=== PATIENT | female | born 2000 | race Hispanic/Latino ===

== ENCOUNTER 2025-02-17 19:56 | Emergency (ER) | payer OTHER, SELFPAY ==
[2025-02-17 20:01] VITALS: BP 125/61; PULSE 73; RESP 18; TEMP 36.7; O2SAT 99; BMI 37.7
--- NOTE | 2025-02-17 20:04 | DI.RAD.S_ITS ---
PROCEDURE: XR HAND RT MIN 3V INDICATIONS: pain TECHNIQUE: 3 views of the hand(s) acquired. COMPARISON: None. FINDINGS: Bones: No fractures or dislocations. Carpal bones are normally aligned. No suspicious bony lesions. Soft tissues: No suspicious soft tissue calcifications. IMPRESSION: No acute bony abnormality. Dictated by: Benoit Noguera M.D. on 02/17/2025 at 21:49 Approved by: Benoit Noguera M.D. on 02/17/2025 at 21:50
--- NOTE | 2025-02-17 23:04 | ED_ITS ---
HPI - Extremity Injury (Upper) General Chief Complaint: Extremity Injury, Upper Stated Complaint: R hand/wrist injury Time Seen by Provider: 02/17/25 23:01 Source: patient Mode of arrival: Ambulatory History of Present Illness HPI narrative: 24-year-old female complains of right wrist/hand pain, had been lifting boxes earlier today, no blunt trauma. No previous injuries or surgeries to that wrist or hand. No numbness or tingling to the fingers. Sometimes has shooting pains up the ipsilateral forearm. Denies pain to the elbow, upper arm, shoulder. No pain left upper extremity. No fevers or chills. No skin changes or redness. No joint swelling. No fevers or chills. Related Data Allergies Allergy/AdvReac Type Severity Reaction Status Date / Time No Known Drug Allergies Allergy Verified 02/17/25 20:03 Patient History Social History Smoking Status: Current every day smoker Smoking Status: Current every day smoker tobacco type: cigarettes and vaping Exam Narrative Exam Narrative: GENERAL: Well-developed patient, in mild distress. HEAD: Atraumatic. Normocephalic. EYES: Pupils equal round and reactive. Extraocular motions intact. No scleral icterus. No injection or drainage. ENT: No gross craniofacial injuries NECK: Trachea midline. Non tender CARDIOVASCULAR: Regular rate and rhythm without murmurs, gallops, or rubs. RESPIRATORY: Clear to auscultation. Breath sounds equal bilaterally. No wheezes, rales, or rhonchi. GASTROINTESTINAL: Abdomen soft, non-tender, nondistended. EXTREMITIES: Mild tenderness right wrist and hypothenar eminence, no redness or swelling or warmth, no gross deformities. Good distal perfusion fingers. BACK: Nontender without deformity or crepitance. No flank tenderness. NEURO: AOx3. Motor functions grossly nonfocal. SKIN: No rash or erythema of visible areas Initial Vital Signs Initial Vital Signs: Vital Signs Temperature 98.0 F 02/17/25 20:01 Pulse Rate 73 02/17/25 20:01 Respiratory Rate 18 02/17/25 20:01 Blood Pressure 125/61 02/17/25 20:01 Pulse Oximetry 99 02/17/25 20:01 Oxygen Delivery Method Room Air 02/17/25 20:01 Course Orders Ordered: ED Orders 02/17/25 20:04 XR hand RT min 3V Stat Discontinued Medications Ibuprofen (Ibuprofen 400 Mg Tablet) 400 mg PO NOW ONE Stop: 02/17/25 23:10 Last Admin: 02/17/25 23:17 Dose: 400 mg Documented By: DAPHNIE Vital Signs Vital signs: Vital Signs - 8 hr 02/17/25 20:01 02/17/25 23:18 Temperature 98.0 F 99.3 F Pulse Rate 73 62 Respiratory Rate 18 16 Blood Pressure 125/61 133/75 Pulse Oximetry 99 100 Oxygen Delivery Method Room Air Room Air MDM - Extremity Injury (Upper) Imaging Data Extremity x-ray #1: Radiologist's Impression: [address] [address] XRay Report Signed Patient: Kaur Kothari MR#: [id number] : 2000 Acct:[id number] Age/Sex: 24 / F Date of Service: 02/17/25 Loc: ED Accession Number: [id number] Procedure: XR hand RT min 3V Ordering Provider: Diane Escobedo D.O. PROCEDURE: XR HAND RT MIN 3V INDICATIONS: pain TECHNIQUE: 3 views of the hand(s) acquired. COMPARISON: None. FINDINGS: Bones: No fractures or dislocations. Carpal bones are normally aligned. No pat spicious bony lesions. Soft tissues: No suspicious soft tissue calcifications. IMPRESSION: No acute bony abnormality. Dictated by: Benoit Noguera M.D. on 02/17/2025 at 21:49 Approved by: Benoit Noguera M.D. on 02/17/2025 at 21:50 [facility] Narrative Medical decision making narrative: 24-year-old female has been lifting boxes at work, complains of right wrist and hand discomfort. Worse with movement. Blunt trauma. Mild tenderness to the right hypothenar wrist hand area. Clinically suspect tendonitis by history and exam. X-ray left hand from triage, negative see radiologist's report. Placed in right wrist splint. No medications taken, given oral ibuprofen. Discharged home. Follow up with PCP early next week advised. Return precautions discussed. Discharge Plan Departure Patient Disposition: Home Clinical Impression: Sprain and strain of wrist Activity Restrictions/Additional Instructions: Right hand/wrist discomfort after moving boxes, no blunt trauma. X-ray negative for fracture. History and exam consistent with tendinitis. Trial of wrist splint immobilization. Consider taking Tylenol and or Motrin [id number] for pain control. Can consider local ice application as needed. Recheck with your regular doctor early next week. Return to this/nearest emergency department for any change worsening symptoms or any concerns prior. Stand Alone Forms: Patient Portal/API, Work Release Note
[2025-02-17] MEDS: IBUPROFEN 400 MG TABLET PO (23:17)
[2025-02-17 23:18] VITALS: BP 133/75; PULSE 62; RESP 16; TEMP 37.4; O2SAT 100
== END 2025-02-17 23:32 | disposition home or self-care (01) ==
PROVIDERS: Emergency Provider Emergency Medicine
DX: S63.501A Unspecified sprain of right wrist, initial encounter (principal); S66.911A Strain of unspecified muscle, fascia and tendon at wrist and hand level, right hand, initial encounter; X58.XXXA Exposure to other specified factors, initial encounter
CPT/HCPCS: 73130; 99283